=== PATIENT | female | born 1955 | race African-American/Black ===

== ENCOUNTER 2022-08-05 12:30 | Emergency (ER) | payer MEDICAID, OTHER ==
[~2022-08-05] VITALS: Ht 172.7 cm; Wt 77.0 kg
[2022-08-05 14:25] LABS: BASOPHILS % 0.5 % (0.0-2.0); EOSINOPHILS % 1.4 % (0.0-5.0); HEMATOCRIT. 33.7 % (36.0-48.0); HEMOGLOBIN. 11.9 g/dL (12.0-16.0); LYMPHOCYTES % 41.8 % (20.0-50.0); MEAN CORPUSCULAR VOLUME 93.8 fL (81.0-99.0); MEAN PLATELET VOLUME 7.1 fl (7.4-10.4); MONOCYTES % 9.8 % (2.0-8.0); NEUTROPHILS % 46.5 % (40.0-76.0); PLATELET 273 x1000/uL (130-400); RED CELL DISTRIBUTION WIDTH 12.4 % (11.6-14.6)
[2022-08-05 14:36] LABS: CHLORIDE 105 mEq/L (98-107)
[2022-08-05] MEDS ORDERED: ONDANSETRON HCL 4MG/2ML INJ IV ONE (15:45)
[2022-08-05] MEDS ORDERED: ONDANSETRON HCL 4MG TABLET PO ONE (15:45)
[2022-08-05] MEDS ORDERED: MORPHINE SULFATE 2 MG/ML CPJ (NOT FOR IM USE) IV ONE (16:15)
[2022-08-05] MEDS ORDERED: METOCLOPRAMIDE HCL 10MG/2ML VIAL IV ONE (17:00)
[2022-08-05 19:22] VITALS: BP 98/51
== END 2022-08-05 19:32 | disposition short-term general hospital (02) ==
LOC: ER 12:30 → CANBEDREQ 08-06 10:08
DX: U07.1 COVID-19 (principal); Z88.6 Allergy status to analgesic agent; Z86.73 Personal history of transient ischemic attack (TIA), and cerebral infarction without residual deficits
CPT/HCPCS: 36415; 71045; 80053; 83880; 84484; 85025; 87426; 87804; 93005; 96374; 96375; 99285; C9803; J2270; J2405; J2765

== ENCOUNTER 2023-10-17 18:41 | Emergency (ER) | payer OTHER ==
[~2023-10-17] VITALS: Ht 162.6 cm; Wt 66.0 kg
[2023-10-17 18:47] VITALS: TEMP 98.2; O2SAT 98
[2023-10-17] MEDS: MECLIZINE 25MG TABLET PO ONE (20:35)
[2023-10-17 21:51] LABS: BASOPHILS % 0.4 % (0.0-2.0); EOSINOPHILS % 0.7 % (0.0-5.0); HEMATOCRIT. 30.1 % (36.0-48.0); HEMOGLOBIN. 10.2 g/dL (12.0-16.0); LYMPHOCYTES % 41.4 % (20.0-50.0); MEAN CORPUSCULAR HEMOGLOBIN 32.2 pg (28.0-32.0); MEAN CORPUSCULAR VOLUME 94.7 fL (81.0-99.0); MEAN PLATELET VOLUME 7.1 fl (7.4-10.4); MONOCYTES % 7.6 % (2.0-8.0); NEUTROPHILS % 49.9 % (40.0-76.0); PLATELET 343 x1000/uL (130-400); RED BLOOD CELL COUNT 3.18 mill/uL (4.2-5.4); RED CELL DISTRIBUTION WIDTH 12.6 % (11.6-14.6); WHITE BLOOD COUNT 7.1 x1000/uL (4.5-11.0)
[2023-10-17 22:02] LABS: PARTIAL THROMBOPLASTIN TIME 28.5 sec (23.4-31.0); PROTHROMBIN TIME 11.4 sec (9.6-11.0)
[2023-10-17 22:05] LABS: ALANINE AMINOTRANSFERASE 27 IU/L (10-49); ALBUMIN 4.2 g/dL (3.2-4.8); ASPARTATE AMINOTRANSFERASE 26 IU/L (<34); BILIRUBIN TOTAL 0.5 mg/dL (0.1-1.0); CALCIUM 9.6 mg/dL (8.7-10.4); CARBON DIOXIDE 31 mEq/L (21-32); CHLORIDE 107 mEq/L (98-107); CREATININE 0.8 mg/dL (0.6-1.0); GLUCOSE 91 mg/dL (70-105); POTASSIUM 3.3 mEq/L (3.5-5.1); PROTEIN TOTAL 7.1 g/dL (6.0-8.3); SODIUM 141 mEq/L (136-145); UREA NITROGEN BLOOD 12 mg/dL (9-23)
[2023-10-17 22:06] LABS: TROPONIN I HIGH SENSITIVITY < 4 ng/L (3.0-34)
[2023-10-17] MEDS: HYDROCODONE/ACETAMINOPHEN 5/325MG TABLET PO ONE (22:38)
[2023-10-17] MEDS: MORPHINE SULFATE 2 MG/ML CPJ (NOT FOR IM USE) IV ONE (22:50)
[2023-10-17] MEDS: SODIUM CHLORIDE 0.9% 1,000 ML IV ONE (23:14)
[2023-10-17] MEDS: ASPIRIN 81MG TABLET PO ONE (23:14)
[2023-10-17] MEDS: POTASSIUM CHLORIDE 20MEQ TABLET SR PO ONE (23:14)
[2023-10-17 23:32] VITALS: BP 119/64; PULSE 63; RESP 13
== END 2023-10-18 00:25 | disposition short-term general hospital (02) ==
LOC: ER 18:41 → CANBEDREQ 10-19 20:15
DX: R42 Dizziness and giddiness (principal); K59.00 Constipation, unspecified; Z87.440 Personal history of urinary (tract) infections; Z86.73 Personal history of transient ischemic attack (TIA), and cerebral infarction without residual deficits; Z88.6 Allergy status to analgesic agent
CPT/HCPCS: 99285; 96374; 70450; 71045; 96361; 80053; 83880; 85025; 85610; 85730; 84484; 36415; 93005; J8597; J2270; J7030

== ENCOUNTER 2024-07-05 16:14 | Emergency (ER) | payer OTHER ==
[~2024-07-05] VITALS: Ht 167.6 cm; Wt 75.0 kg
[2024-07-05 16:19] VITALS: O2SAT 98
[2024-07-05 17:32] VITALS: TEMP 36.55848
[2024-07-05 19:09] LABS: BASOPHILS % 0.4 % (0.0-2.0); EOSINOPHILS % 1.7 % (0.0-5.0); HEMATOCRIT. 32.2 % (36.0-48.0); MEAN CORPUSCULAR HEMOGLOBIN 32.9 pg (28.0-32.0); MEAN CORPUSCULAR HGB CONC 34.2 g/dL (31.0-37.0); MEAN CORPUSCULAR VOLUME 96.3 fL (81.0-99.0); MEAN PLATELET VOLUME 7.6 fl (7.4-10.4); MONOCYTES % 8.6 % (2.0-8.0); NEUTROPHILS % 47.3 % (40.0-76.0); PLATELET 288 x1000/uL (130-400); RED BLOOD CELL COUNT 3.35 mill/uL (4.2-5.4); RED CELL DISTRIBUTION WIDTH 12.8 % (11.6-14.6); WHITE BLOOD COUNT 7.8 x1000/uL (4.5-11.0)
[2024-07-05 19:16] LABS: CHLORIDE 109 mEq/L (98-107); POTASSIUM 3.5 mEq/L (3.5-5.1); SODIUM 144 mEq/L (136-145)
[2024-07-05 19:18] LABS: CALCIUM 10.1 mg/dL (8.7-10.4); CARBON DIOXIDE 30 mEq/L (21-32)
[2024-07-05 19:23] LABS: CREATININE 0.9 mg/dL (0.6-1.0); GLUCOSE 84 mg/dL (70-105); UREA NITROGEN BLOOD 10 mg/dL (9-23)
[2024-07-05 19:25] LABS: ALANINE AMINOTRANSFERASE 16 IU/L (10-49); ALBUMIN 4.6 g/dL (3.2-4.8); ASPARTATE AMINOTRANSFERASE 23 IU/L (<34); BILIRUBIN DIRECT < 0.1 mg/dL (<=3.0); BILIRUBIN TOTAL 0.4 mg/dL (0.1-1.0); ETHANOL BLOOD < 10 mg/dL (<10); PROTEIN TOTAL 7.6 g/dL (6.0-8.3); TROPONIN I HIGH SENSITIVITY < 4 ng/L (3.0-34)
[2024-07-05 19:28] LABS: INR 0.9; PROTHROMBIN TIME 10.3 sec (9.6-11.0)
[2024-07-05 21:01] VITALS: TEMP 97.8
[2024-07-05] MEDS: ACETAMINOPHEN 325MG TABLET PO ONE (21:01)
[2024-07-05 22:01] VITALS: BP 112/56; PULSE 73; RESP 17; O2SAT 95
[2024-07-05] MEDS ORDERED: IOHEXOL-350 100 ML BOTTLE ONE (23:18)
== END 2024-07-05 22:39 | disposition short-term general hospital (02) ==
LOC: ER 16:14 → EDBEDREQTM 20:21 → EDBEDREQ 20:21 → ER 22:39
DX: R29.810 Facial weakness (principal); Z88.6 Allergy status to analgesic agent; Z86.73 Personal history of transient ischemic attack (TIA), and cerebral infarction without residual deficits
CPT/HCPCS: 80076; 80048; 80320; 85025; 85610; 84484; 36415; 71045; 70496; 70498; 70450; 93005; 99291; Q9967; G0480

== ENCOUNTER 2025-08-25 23:03 | Emergency (ER) | payer OTHER ==
[~2025-08-25] VITALS: Ht 152.4 cm; Wt 66.0 kg
[2025-08-25 23:15] VITALS: O2SAT 100
[2025-08-26 00:24] LABS: CREATININE 0.9 mg/dL (0.6-1.0); TROPONIN I HIGH SENSITIVITY 9 ng/L (3.0-34)
[2025-08-26 00:25] LABS: ETHANOL BLOOD < 10 mg/dL (<10); PROTEIN TOTAL 7.2 g/dL (6.0-8.3); UREA NITROGEN BLOOD < 5 mg/dL (9-23)
[2025-08-26 00:26] LABS: ASPARTATE AMINOTRANSFERASE 49 IU/L (<34); BILIRUBIN DIRECT 0.2 mg/dL (<=3.0)
[2025-08-26 00:27] LABS: BILIRUBIN TOTAL 0.6 mg/dL (0.1-1.0)
[2025-08-26 00:42] LABS: BASOPHILS % 0.3 % (0.0-2.0); EOSINOPHILS % 0.3 % (0.0-5.0); HEMATOCRIT. 35.7 % (36.0-48.0); HEMOGLOBIN. 11.9 g/dL (12.0-16.0); LYMPHOCYTES % 19.5 % (20.0-50.0); MEAN PLATELET VOLUME 7.5 fl (7.4-10.4); MONOCYTES % 7.3 % (2.0-8.0); NEUTROPHILS % 72.6 % (40.0-76.0); PLATELET 301 x1000/uL (130-400); RED BLOOD CELL COUNT 3.66 mill/uL (4.2-5.4); RED CELL DISTRIBUTION WIDTH 12.3 % (11.6-14.6)
[2025-08-26] MEDS: ACETAMINOPHEN 325MG TABLET PO NR (01:47)
[2025-08-26] MEDS: POTASSIUM CHLORIDE 20MEQ/PACKET PO NR (02:58)
[2025-08-26 03:01] VITALS: TEMP 36.5
[2025-08-26] MEDS: MORPHINE SULFATE 2 MG/ML INJ (NOT FOR IM USE) IV ONE (04:25)
[2025-08-26 04:30] VITALS: BP 108/54; PULSE 69; RESP 16; O2SAT 100
== END 2025-08-26 05:03 | disposition short-term general hospital (02) ==
LOC: ER 23:25 → CMPBEDREQ 08-26 07:23
DX: R55 Syncope and collapse (principal); M25.551 Pain in right hip; M25.552 Pain in left hip; I11.0 Hypertensive heart disease with heart failure; I50.9 Heart failure, unspecified; E87.6 Hypokalemia; Z86.73 Personal history of transient ischemic attack (TIA), and cerebral infarction without residual deficits; Z88.6 Allergy status to analgesic agent
CPT/HCPCS: 80076; 80048; 80320; 82550; 84484; 36415; 73522; 71045; 93005; 99285; 85025; 70450; 96374; J2270; G0480